=== PATIENT | male | born 1980 | race American Indian/Alaskan Native ===

== ENCOUNTER 2020-10-11 12:36 | Emergency (ER) | payer MEDICAID ==
[2020-10-11] MEDS ORDERED: IPRATROPIUM/ALBUTEROL SULFATE 3 ML AMPUL.NEB IH ONE (14:26)
[2020-10-11] MEDS ORDERED: predniSONE 20 MG TAB PO ONE (14:26)
[2020-10-11] MEDS ORDERED: AZITHROMYCIN 1 GM ORAL PWDR PACKET PO ONE (14:40)
[2020-10-11] MEDS ORDERED: CETIRIZINE 10 MG TAB PO ONE (14:40)
[2020-10-11 14:46] VITALS: BP 144/79
--- NOTE | 2020-10-11 15:11 | XRay Report ---
XR chest 1V ap INDICATION / CLINICAL INFORMATION: dyspnea wheezing. COMPARISON: None available. FINDINGS: SUPPORT DEVICES: None. HEART /PULMONARY VASCULATURE: No significant abnormality. LUNGS / PLEURA: Low lung volumes. There are mild increased interstitial markings bilaterally. No foca l alveolar consolidation. No pleural effusion. No pneumothorax. ADDITIONAL FINDINGS: No significant additional findings. IMPRESSION: Low lung volumes with mild increased interstitial opacities, may reflect developing atypical infectio us or inflammatory pneumonitis. Signer Name: Remi Leal MD Signed: 10/11/2020 3:06 PM Workstation Name: [id number]
--- NOTE | 2020-10-11 15:55 | Emergency Department Report ---
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 Improved with sister's albuterol treatment. Nonproductive cough. Mild diarrhea. No sick contacts. MD Complaint: shortness of breath, cough, chest pain -: Gradual, week(s) (1 week) Severity: mild Consistency: constant Improves With: bronchodilators Worsens With: nothing Known History Of: asthma (Childhood asthma) Associated Symptoms: chest pain, cough - Related Data Previous Rx's Medication Instructions Recorded Last Taken Type Albuterol Mdi (or & Nicu Only) 2 puff IH QID PRN #8.5 gram 10/11/20 Unknown Rx [ProAir HFA Inhaler] Azithromycin [Zithromax TAB] 1 tab PO DAILY 4 Days #4 10/11/20 Unknown Rx Prednisone [predniSONE 10 mg 10 mg PO .TAPER #1 tab.ds.pk 10/11/20 Unknown Rx (6-Day Pack, 21 Tabs)] Allergies Allergy/AdvReac Type Severity Reaction Status Date / Time No Known Allergies Allergy Verified 10/11/20 12:49 ED Review of Systems ROS: Stated complaint: AURELIA Other details as noted in HPI Comment: All other systems reviewed and negative Constitutional: denies: fever, malaise Respiratory: cough, shortness of breath, wheezing Cardiovascular: chest pain ED Past Medical Hx - Past Medical History Previous Medical History?: No - Surgical History Past Surgical History?: No - Social History Smoking Status: Never Smoker Substance Use Type: None - Medications Home Medications: Home Medications Medication Instructions Recorded Confirmed Last Taken Type Albuterol Mdi (or & Nicu Only) 2 puff IH QID PRN #8.5 gram 10/11/20 Unknown Rx [ProAir HFA Inhaler] Azithromycin [Zithromax TAB] 1 tab PO DAILY 4 Days #4 10/11/20 Unknown Rx Prednisone [predniSONE 10 mg 10 mg PO .TAPER #1 tab.ds.pk 10/11/20 Unknown Rx (6-Day Pack, 21 Tabs)] ED Physical Exam - General Limitations: Other General appearance: alert, in no apparent distress - Head Head exam: Present: atraumatic, normocephalic - Eye Eye exam: Present: normal appearance - ENT ENT exam: Present: mucous membranes moist - Neck Neck exam: Present: normal inspection - Respiratory Respiratory exam: Present: wheezes, prolonged expiratory. Absent: rales, stridor, chest wall tenderness, accessory muscle use - Cardiovascular Cardiovascular Exam: Present: regular rate, normal rhythm, normal heart sounds. Absent: systolic murmur, diastolic murmur, rubs, gallop - GI/Abdominal GI/Abdominal exam: Present: soft, normal bowel sounds. Absent: distended, tenderness, guarding, rebound - Rectal Rectal exam: Present: deferred - Extremities Exam Extremities exam: Present: normal inspection - Neurological Exam Neurological exam: Present: alert, oriented X3 - Psychiatric Psychiatric exam: Present: normal affect, normal mood - Skin Skin exam: Present: warm, dry, intact, normal color. Absent: rash ED Course Vital Signs 10/11/20 10/11/20 10/11/20 14:32 14:40 14:45 Temperature 97.9 F Pulse Rate 102 H Pulse Rate [ 92 H Anterior Bilateral Throughout] Respiratory 20 20 Rate Respiratory 16 Rate [Anterior Bilateral Throughout] Blood Pressure 144/79 [Left] O2 Sat by Pulse 94 Oximetry ED Medical Decision Making - Radiology Data Radiology results: report reviewed Mild increased interstitial opacities may reflect developing atypical infection or inflammatory pneumonitis - Medical Decision Making Differential diagnosis includes: Reactive airway disease, allergic bronchospasm due to seasonal exposure, COVID-19 infection, atypical pneumonia, COVID-19, I strongly encourage outpatient COVID-19 testing. I strongly encourage self-isol ation self quarantine. Patient prescribed azithromycin prednisone albuterol MDI. Critical care attestation.: If time is entered above; I have spent that time in minutes in the direct care of this critically ill patient, excluding procedure time. ED Disposition Clinical Impression: Reactive airway disease Disposition: DC-01 TO HOME OR SELFCARE Is pt being admited?: No Does the pt Need Aspirin: No Condition: Stable Additional Instructions: I strongly recommend outpatient COVID-19 testing. Prescriptions: Prednisone [predniSONE 10 mg (6-Day Pack, 21 Tabs)] 10 mg PO .TAPER #1 tab.ds.pk Albuterol Mdi (or & Nicu Only) [ProAir HFA Inhaler] 2 puff IH QID PRN #8.5 gram PRN Reason: Shortness Of Breath Azithromycin [Zithromax TAB] 1 tab PO DAILY 4 Days #4 Referrals: LULU MARCUS MD [Staff Physician] - 3-5 Days
--- NOTE | 2020-10-12 09:37 | Electrocardiograph Report ---
[facility] Test Date: 2020-10-11 Test Time: 12:48:11 Pat Name: DWAYNE IBANEZ Department: Room: Gender: M [employer] Member: GREGORIO : 1980 Requested By: DENNY BECKER Order Number: [id number] Reading MD: Avtar Gauthier Measurements Intervals [place] Rate: 102 P: 66 ID: [id number] QRS: 41 QRSD: 96 T: 48 QT: 345 QTc: 448 Interpretive Statements Sinus tachycardia Low voltage, precordial leads No previous ECG available for comparison Electronically Signed On 10-12-2020 9:37:08 EDT by Avtar Gauthier
== END 2020-10-11 16:18 | disposition home or self-care (01) ==
LOC: ED 12:36
DX: J45.909 Unspecified asthma, uncomplicated (principal); Z79.899 Other long term (current) drug therapy
CPT/HCPCS: 71045; 93005; 94640; 99283; J7512; 94644